=== PATIENT | female | born 1995 | race Caucasian/White ===

== ENCOUNTER 2022-10-09 09:19 | Emergency (ER) | payer OTHER ==
[2022-10-09] VITALS (8 sets, daily range): BP systolic 130–148; BP diastolic 88–115; PULSE 62–144; RESP 16–17; TEMP 98.1–98.5; O2SAT 97–99
[~2022-10-09] VITALS: Ht 177.8 cm; Wt 107.0 kg
[2022-10-09] MEDS ORDERED: NACL 0.9% 1,000 ML IV ONE ×2 (10:20→11:15)
[2022-10-09 10:38] LABS: APPEARANCE,URINE CLEAR (CLEAR); BILIRUBIN,URINE NEGATIVE (NEGATIVE); BLOOD, URINE NEGATIVE (NEGATIVE); COLOR,URINE YELLOW (YELLOW); LEUKOCYTE ESTERASE ,URINE NEGATIVE (NEGATIVE); NITRITE, URINE POSITIVE (NEGATIVE); PH,URINE 5.5 (5.0-9.0); PROTEIN,URINE 1+ (NEGATIVE); UGLUCOSE 3+ (NEGATIVE)
[2022-10-09] MEDS ORDERED: cefTRIAXone 1,000 MG VIAL ONE (10:40)
[2022-10-09 10:41] LABS: BASOPHILS % (AUTO) 0.2 % (0.0-2.0); EOSINOPHILS % (AUTO) 0.1 % (0.0-4.0); HEMATOCRIT 41.6 % (36-48); HEMOGLOBIN 14.3 g/dL (12.0-16.0); LYMPHOCYTES # (AUTO) 1.8 K/uL (2.5-16.5); LYMPHOCYTES % (AUTO) 15.6 % (20.5-51.1); MEAN CORPUSCULAR HEMOGLOBIN 29 pg (27-31); MEAN CORPUSCULAR HGB CONC 34 g/dL (33-37); MEAN CORPUSCULAR VOLUME 85.2 fL (80-94); MONOCYTES # (AUTO) 1.5 K/uL (0.8-1.0); MONOCYTES % (AUTO) 12.9 % (1.7-9.3); NEUTROPHILS # (AUTO) 8.1 K/uL (1.8-7.7); NEUTROPHILS % (AUTO) 71.2 % (42.2-75.2); PLATELET COUNT (AUTO) 242 K/uL (140-450); RED BLOOD CELL COUNT(AUTO) 4.89 MIL/uL (4.20-5.40); RED CELL DISTRIBUTION WIDTH 12.8 % (11.6-13.7); WHITE BLOOD COUNT (AUTO) 11.4 K/uL (4.8-10.8)
[2022-10-09 10:56] LABS: ALBUMIN 3.4 g/dL (3.4-5.0); ANION GAP 18.1 (8-16); CALCIUM 9.1 mg/dL (8.5-10.1); CARBON DIOXIDE 20.4 mmol/L (21-32); CREATININE 0.8 mg/dL (0.6-1.3); POTASSIUM 3.5 mmol/L (3.5-5.1); TOTAL BILIRUBIN 0.5 mg/dL (0.0-1.0); TOTAL PROTEIN, SERUM 9.6 g/dL (6.4-8.2)
[2022-10-09 10:57] LABS: BACTERIA,URINE 1+ /HPF (None Seen); RBC,URINE 0-5 /HPF (0-5); SQUAMOUS EPITHELIAL CELL,UR 50-80 /LPF (0-3 (FEW)); WBC,URINE 60-80 /HPF (0-5)
[2022-10-09 10:59] LABS: LACTIC ACID 1.3 mmol/L (0.4-2.0)
[2022-10-09] MEDS ORDERED: KETOROLAC 30 MG/ML VIAL IVP ONE (11:15)
[2022-10-09] MEDS ORDERED: LIDOCAINE OINTMENT 5% 35 GM TUBE TP ONE (11:15)
[2022-10-09] MEDS ORDERED: LIDOCAINE 2% 100 MG/5 ML UJET TP ONE (11:43)
[2022-10-09] MEDS ORDERED: HYDR-2849 PO (14:12)
[2022-10-09] MEDS ORDERED: METF-346 PO (14:12)
== END 2022-10-09 19:09 | disposition short-term general hospital (02) ==
LOC: MED 09:19
DX: N39.0 Urinary tract infection, site not specified (principal); A41.9 Sepsis, unspecified organism; N76.0 Acute vaginitis; E11.65 Type 2 diabetes mellitus with hyperglycemia; I10 Essential (primary) hypertension; Z79.84 Long term (current) use of oral hypoglycemic drugs; Z79.899 Other long term (current) drug therapy
CPT/HCPCS: 36415; 80053; 81001; 81025; 83605; 85025; 87040; 87086; 96361; 96365; 96375; 99285; J0696; J1885; J7030